=== PATIENT | female | born 1950 | race Two or more races ===

== ENCOUNTER → 2018-02-05 | Day surgery (SDC) | payer OTHER ==
[~2018-02-05] MED LIST: SIMVASTATIN20 MG PO; SYNTHROID50 MCG PO
== END | disposition home or self-care (01) ==
LOC: EDSTATUS 01-28 10:15 → AMB-ENDOS 09:20
DX: K57.30 Diverticulosis of large intestine without perforation or abscess without bleeding (principal)

== ENCOUNTER 2023-07-30 10:30 | Inpatient (IN) | payer OTHER ==
[~2023-07-30] VITALS: Ht 157.5 cm; Wt 79.4 kg
[2023-07-30] MEDS ORDERED: CLONAZEPAM0.5 MG PO (13:41)
[2023-07-30] MEDS ORDERED: COZAAR100 MG PO (13:41)
[2023-07-30] MEDS ORDERED: DILTIAZEM ER180 M3 PO (13:41)
[2023-07-30] MEDS ORDERED: DOXAZOSIN MESYLA2 MG PO (13:41)
[2023-07-30] MEDS ORDERED: NOVOLOG100 UNIT/1 (13:42)
[2023-07-30] MEDS ORDERED: LANTUS SOL100 UNIT/1 (13:42)
[2023-07-30] MEDS ORDERED: WELLBUTRIN SR100 MG PO (13:43)
[2023-07-30] MEDS ORDERED: HYDRODIURIL12.5 MG PO (13:43)
[2023-07-30] MEDS ORDERED: METFORMIN HCL1000 M2 PO (13:43)
[2023-07-30] MEDS ORDERED: EXELON1 EAC1 TD (13:44)
[2023-08-05 13:23] LABS: HEMATOCRIT 38.9 % (36.0-45.00); HEMOGLOBIN 12.8 g/dL (12.0-15.00); MEAN CELL VOLUME 84.7 fL (80.00-100.00); MEAN CORPUSCULAR HEMOGLOBIN 27.8 pg (27.00-32.0); MEAN CORPUSCULAR HGB CONC 32.9 g/dl (32.0-36.0); PLATELET COUNT 174 K/uL (150-450); RED CELL DISTRIBUTION WIDTH 14.9 % (11.5-14.5)
[2023-08-05 13:57] LABS: ALBUMIN 3.3 gm/dL (3.4-5.0); CALCIUM 9.2 mg/dL (8.5-10.1); CREATININE SERUM 0.85 mg/dL (0.55-1.02); GFR 65.2; MAGNESIUM 1.7 mg/dL (1.8-2.4); POTASSIUM 4.13 mEq/L (3.5-5.1)
[2023-08-05 14:46] LABS: ABG PH 7.356 (7.35-7.45); ABG PO2 81.9 mmHg (80-100); ABG pCO2 42.9 mmHg (35-45); BASE EXCESS -2.1 mmol/l; BICARBONATE 23.5 mmol/l (23-25); SaO2 95.3 %; Tco2 24.8 mmol/l; allen test SATISFACTORY; o2 32 %; puncture site RADIAL LEFT
[2023-08-06 07:09] LABS: HEMATOCRIT 35.3 % (36.0-45.00); HEMOGLOBIN 11.9 g/dL (12.0-15.00); MEAN CELL VOLUME 84.1 fL (80.00-100.00); MEAN CORPUSCULAR HEMOGLOBIN 28.3 pg (27.00-32.0); MEAN CORPUSCULAR HGB CONC 33.6 g/dl (32.0-36.0); PLATELET COUNT 180 K/uL (150-450); RED CELL DISTRIBUTION WIDTH 14.3 % (11.5-14.5)
[2023-08-06 08:14] LABS: ALBUMIN 2.6 gm/dL (3.4-5.0); CALCIUM 8.5 mg/dL (8.5-10.1); CREATININE SERUM 0.94 mg/dL (0.55-1.02); GFR 58.05; PHOSPHOROUS 3.6 mg/dL (2.5-4.9); POTASSIUM 3.64 mEq/L (3.5-5.1)
[2023-08-06 08:32] LABS: MAGNESIUM 1.4 mg/dL (1.8-2.4)
[2023-08-07 11:33] LABS: HEMATOCRIT 34.8 % (36.0-45.00); HEMOGLOBIN 11.6 g/dL (12.0-15.00); MEAN CELL VOLUME 84.4 fL (80.00-100.00); MEAN CORPUSCULAR HEMOGLOBIN 28.1 pg (27.00-32.0); MEAN CORPUSCULAR HGB CONC 33.3 g/dl (32.0-36.0); PLATELET COUNT 181 K/uL (150-450); RED BLOOD COUNT 4.13 M/uL (4.00-6.00); RED CELL DISTRIBUTION WIDTH 14.6 % (11.5-14.5)
[2023-08-07 12:15] LABS: CALCIUM 9.2 mg/dL (8.5-10.1); CREATININE SERUM 1.23 mg/dL (0.55-1.02); GFR 42.56; POTASSIUM 4.01 mEq/L (3.5-5.1)
[2023-08-07 12:39] LABS: PHOSPHOROUS 1.7 mg/dL (2.5-4.9)
[2023-08-08 07:17] LABS: CALCIUM 8.8 mg/dL (8.5-10.1); CREATININE SERUM 0.96 mg/dL (0.55-1.02); GFR 56.66; PHOSPHOROUS 2.4 mg/dL (2.5-4.9); POTASSIUM 3.69 mEq/L (3.5-5.1)
[2023-08-08] MEDS ORDERED: HYOSCYAMINE0.125 M1 SL (14:56)
== END 2023-08-08 18:08 | disposition home or self-care (01) | DRG 331 ==
LOC: O/R 08-05 06:00 → SURG 08-05 06:00 → SURH 08-05 07:00 → SURG 08-05 11:53
PROVIDERS: Internal Medicine Geriatric Medicine; ADMIT Surgery; ATTEND Surgery
PROC: 0DTN4ZZ Resection of Sigmoid Colon, Percutaneous Endoscopic Approach (ICD-10-PCS; 2023-08-05)
PROC: 0DJD8ZZ Inspection of Lower Intestinal Tract, Via Natural or Artificial Opening Endoscopic (ICD-10-PCS; 2023-08-05)
PROC: 0DTM4ZZ Resection of Descending Colon, Percutaneous Endoscopic Approach (ICD-10-PCS; principal; 2023-08-05 07:00)
DX: K57.20 Diverticulitis of large intestine with perforation and abscess without bleeding (principal); D12.2 Benign neoplasm of ascending colon; D37.4 Neoplasm of uncertain behavior of colon